=== PATIENT | female | born 1990 | race Caucasian/White ===

== ENCOUNTER 2017-02-27 00:13 | Inpatient (IN) | payer MEDICAID ==
[2017-02-27] VITALS (9 sets, daily range): BP systolic 100–142; BP diastolic 55–82; PULSE 77–106; RESP 16–18; TEMP 97.6–98.6; O2SAT 98–100
[~2017-02-27] VITALS: Ht 175.3 cm; Wt 87.0 kg
[~2017-02-27 00:13] MED LIST: IBUP600 PO
[2017-02-27] MEDS ORDERED: levETIRAcetam 500 MG TAB PO ONE (02:00)
--- NOTE | 2017-02-27 02:05 | PD ---
HPI Chief Complaint: Pain: Acute or Chronic Time Seen by Provider: 01:55 Travel History International Travel<30 days: No Contact w/Intl Traveler<30days: No Traveled to known affect area: No History of Present Illness HPI The patient is a 26 year old female who presents to the [facility] emergency department with a history of reportedly feeling unwell since July 2016 when she began to have recurrent staph skin infections. She reports that she's been on multiple rounds of antibiotic with waxing and waning improvement in her symptoms. She is followed by Dr. Vee for her care. She reports that she last completed a course of antibiotics 3 weeks ago. They held off on any further antibiotic at that point to see if her symptoms would improve on its own. She reports that they have not. She reports that she had a fever with a MAXIMUM TEMPERATURE of 102.1 last night. She also reports that over the last few days she's had pain in the left lateral hip with movement. She reports that the hip pain is near the site of a prior staph infection that is now scarred over. She denies having any known swelling to that area or erythema. She reports that she's had nausea for months without vomiting. The patient reports that she does have a history of IV drug use. She recently reports that she relapsed 2 weeks ago. She reports that she is using Dilaudid. She last used this yesterday morning. She reports that a week ago she did have an episode of chest tightness and shortness of breath that lasted for approximately a minute. She reports that she has not had any chest pain since then. She reports that she has had lower extremity edema which has been new recently. Otherwise on review of systems, she denies any recent cough, neck pain, abdominal pain,urinary symptoms, or neurologic symptoms. [facility] Past Medical History Narrative Medical The patient's past medical history is significant for IV drug use, history of hepatitis C diagnosed last year, history of polycystic ovarian syndrome. Diminished Hearing: No Hepatitis: Yes (HEP C ) Medical other: Yes (POLYCYSTIC OVARY SYNDROME ) ?: Not LMP: 01/28/17 Past Surgical History Narrative Surgical The patient's past surgical history is significant for a cystectomy, 1. Other Surgery: Yes (CYST REMOVED OFF OF OVARY ) Social History Alcohol Use: No Tobacco Use: Yes (1/2 PPD ) Substance Use: Yes (OPIATES ) Allergies-Medications (Allergen,Severity, Reaction): Coded Allergies: Ultram (Verified Allergy, Severe, Seizures, 01/25/16) Latex (Verified Allergy, Unknown, Burning , 01/24/16) blistering Reported Meds & Prescriptions Reported Meds & Active Scripts Active Motrin 600 Mg Tab (Ibuprofen) 600 Mg Tab 600 Mg PO Q6H PRN Review of Systems Except as stated in HPI: all other systems reviewed are Neg General / Constitutional: No: Fever Eyes: No: Visual changes HENT: No: Headaches Cardiovascular: Positive: Chest Pain or Discomfort Respiratory: Positive: Shortness of Breath Gastrointestinal: No: Abdominal Pain Genitourinary: No: Dysuria Musculoskeletal: No: Pain Skin: No Rash Neurologic: Positive: Weakness (generalized weakness), No: Focal Abnormalities , Change in Mentation, Slurred Speech, Sensory Disturbance Psychiatric: No: Depression Endocrine: No: Polydipsia Hematologic/Lymphatic: No: Easy Bruising Physical Exam Narrative General: The patient is a well-developed well-nourished female in no acute distress. Head and Neck exam: Head is normocephalic atraumatic. Eyes: EOMI, pupils are equal round and reactive to light. Nose: Midline septum with pink mucous membranes Mouth: Dentition unremarkable. Moist mucus membranes. Posterior oropharynx is not erythematous. No tonsillar hypertrophy. Uvula midline. Airway patent. Neck: No palpable lymphadenopathy. No nuchal rigidity. No thyromegaly. Cardiovascular: Sinus tachycardia in the low 100 without murmurs, gallops, or rubs. No pulse deficit to the extremities and simultaneous auscultation and palpation of her radial artery. Lungs: Clear to auscultation bilaterally. No wheezes, rhonchi, or rales. Abdomen: Soft, without tenderness to palpation in all 4 quadrants of the abdomen. No guarding, rebound, or rigidity. Normal bowel sounds are audible. No tenderness on palpation of McBurney's point. Negative [place] sign. Extremities: No clubbing or cyanosis. The patient has trace pedal edema bilateral lower extremities. 2+ pulses in all 4 extremities. The patient reports having left- sided calf pain on palpation. Negative Homans sign. No palpable cords. The area of interest is the left hip. The patient's left hip on examination has full range of motion with internal and external rotation without any significant pain, however the the patient does have on palpation tenderness along the lateral aspect of the hip. There is no erythema or edema. There is no palpable abnormality. No crepitus. Soft compartments are noted. Back: No spinous process tenderness to palpation. No costovertebral angle tenderness to palpation. Neurologic Exam: Grossly nonfocal. Skin Exam: The patient has multiple areas of healing scars and erythematous papules noted on her skin. The patient has track bertrand noted. Data Data Last Documented VS Vital Signs Date Time Temp Pulse Resp B/P Pulse Ox O2 Delivery O2 Flow Rate FiO2 02/27/17 02:30 18 98 Room Air 02/27/17 00:16 97.7 106 142/82 Orders Levetiracetam (Keppra) (02/27/17 02:00) Electrocardiogram (02/27/17 ) Electrocardiogram (02/27/17 ) Electrocardiogram (02/27/17 02:13) Complete Blood Count With Diff (02/27/17 02:13) Comprehensive Metabolic Panel (02/27/17 02:13) Creatine Kinase (Cpk) (02/27/17 02:13) Ckmb (Isoenzyme) Profile (02/27/17 02:13) Troponin I (02/27/17 02:13) B-Type Natriuretic Peptide (02/27/17 02:13) Prothrombin Time / Inr (Pt) (02/27/17 02:13) Act Partial Throm Time (Ptt) (02/27/17 02:13) Blood Culture (02/27/17 02:13) C-Reactive Protein (Crp) (02/27/17 02:13) Urinalysis - C+S If Indicated (02/27/17 02:13) W[place]gren Sedimentation Rate (02/27/17 02:13) Magnesium (Mg) (02/27/17 02:13) Chest, Single Ap (02/27/17 02:13) Iv Access Insert/Monitor (02/27/17 02:13) Ecg Monitoring (02/27/17 02:13) Oximetry (02/27/17 02:13) Ed Urine Pregnancytest Poc (02/27/17 02:13) Drug Screen, Random Urine (02/27/17 02:13) Alcohol (Ethanol) (02/27/17 02:13) Lactic Acid Sepsis Protocol (02/27/17 02:13) Us Leg Venous Doppler (02/27/17 02:13) Ct Hip W Iv Contrast (02/27/17 ) Piperacil-Tazo 3.375 Gm Premix (Zosyn 3. (02/27/17 03:15) Vancomycin Inj (Vancomycin Inj) (02/27/17 03:15) Sodium Chlor 0.9% 1000 Ml Inj (Ns 1000 M (02/27/17 03:15) Iohexol 350 Inj (Omnipaque 350 Inj) (02/27/17 04:06) Admit Order (Ed Use Only) (02/27/17 04:48) Labs Laboratory Tests Test 02/27/17 02/27/17 02:20 02:55 Urine Color YELLOW Urine Turbidity HAZY Urine pH 5.5 Urine Specific [place] 1.032 Urine Protein TRACE mg/dL Urine Glucose (UA) NEG mg/dL Urine Ketones NEG mg/dL Urine Occult Blood MOD Urine Nitrite NEG Urine Bilirubin NEG Urine Urobilinogen 2.0 MG/DL Urine Leukocyte Esterase TRACE Urine RBC 34 /hpf Urine WBC 6 /hpf Urine Squamous Epithelial 3 /hpf Cells Urine Transitional Epithelial <1 /hpf Cells Urine Renal Epithelial Cells <1 /hpf Urine Calcium Oxalate Crystals MOD /hpf Urine Bacteria RARE /hpf Urine Hyaline Casts 4 /lpf Urine Mucus MOD /lpf Microscopic Urinalysis Comment CULT NOT INDICATED Urine Opiates Screen POS Urine Barbiturates Screen NEG Urine Amphetamines Screen POS Urine Benzodiazepines Screen NEG Urine Cocaine Screen NEG Urine Cannabinoids Screen POS White Blood Count 5.0 TH/MM3 Red Blood Count 4.15 MIL/MM3 Hemoglobin 10.6 GM/DL Hematocrit 31.7 % Mean Corpuscular Volume 76.5 FL Mean Corpuscular Hemoglobin 25.6 PG Mean Corpuscular Hemoglobin 33.4 % Concent Red Cell Distribution Width 17.1 % Platelet Count 242 TH/MM3 Mean Platelet Volume 8.4 FL Neutrophils (%) (Auto) 46.1 % Lymphocytes (%) (Auto) 41.0 % Monocytes (%) (Auto) 10.2 % Eosinophils (%) (Auto) 2.3 % Basophils (%) (Auto) 0.4 % Neutrophils # (Auto) 2.3 TH/MM3 Lymphocytes # (Auto) 2.1 TH/MM3 Monocytes # (Auto) 0.5 TH/MM3 Eosinophils # (Auto) 0.1 TH/MM3 Basophils # (Auto) 0.0 TH/MM3 CBC Comment DIFF FINAL Differential Comment Erythrocyte Sedimentation Rate 32 mm/hr Prothrombin Time 10.5 SEC Prothromb Time International 1.0 RATIO Ratio Activated Partial 27.8 SEC Thromboplast Time Sodium Level 140 MEQ/L Potassium Level 3.9 MEQ/L Chloride Level 106 MEQ/L Carbon Dioxide Level 27.9 MEQ/L Anion Gap 6 MEQ/L Blood Urea Nitrogen 10 MG/DL Creatinine 0.60 MG/DL Estimat Glomerular Filtration 119 ML/MIN Rate Random Glucose 89 MG/DL Lactic Acid Level 1.1 mmol/L Calcium Level 8.2 MG/DL Magnesium Level 1.8 MG/DL Total Bilirubin 0.2 MG/DL Aspartate Amino Transf 45 U/L (AST/SGOT) Alanine Aminotransferase 50 U/L (ALT/SGPT) Alkaline Phosphatase 62 U/L Total Creatine Kinase 25 U/L Troponin I LESS THAN 0.02 NG/ML C-Reactive Protein 2.02 MG/DL B-Type Natriuretic Peptide 11 PG/ML Total Protein 7.0 GM/DL Albumin 2.6 GM/DL Ethyl Alcohol Level LESS THAN 3 MG/DL MDM Medical Decision Making Medical Screen Exam Complete: Yes Emergency Medical Condition: Yes Medical Record Reviewed: Yes Interpretation(s) Last Impressions Lower Extremity Ultrasound 02/27/17212 Signed Impressions: Service Date/Time: Monday, February 27, 2017 04:59 - CONCLUSION: No evidence of DVT. Molina Solis MD Chest X-Ray 02/27/17212 Signed Impressions: Service Date/Time: Monday, February 27, 2017 02:32 - CONCLUSION: Normal examination for a patient of this age. Molina Solis MD Lower Extremity CT 02/27/17 0000 Signed Impressions: Service Date/Time: Monday, February 27, 2017 03:55 - CONCLUSION: Unremarkable summation. Molina Solis MD Differential Diagnosis Sepsis related to bacteremia, versus endocarditis, versus septic joint, versus DVT Narrative Course During the course of the patients emergency department visit, the patients history, examination, and differential diagnosis were reviewed with the patient. The patient had IV access obtained and blood work sent for analysis. The patient was placed on a paper sample clerk with oximetry and blood pressure monitoring. A lactic acid was sent for analysis. Blood cultures 2 were sent. The patient had an ECG done on arrival that shows a sinus tachycardia rate of 107, no acute ST segment elevation or depression is noted. The patient was initially provided vancomycin 1 g IV, Zosyn 3.375 g IV, normal saline 1 L IV fluid bolus. The patients laboratory studies were reviewed and remarkable for a white count of 5, hemoglobin 10.6, platelets 242 with 10.2 monocytes, a sedimentation rate is elevated at 32, CMP is remarkable for a calcium of 8.2, AST 45, CPK 25, troponin I less than 0.02, C-reactive protein 2.02, BNP is 11, albumin 2.6, lactic acid 1.1, PT PTT within normal limits. Urine drug screen is positive for opiates, amphetamines, cannabinoids. Alcohol level less than 3, urinalysis shows moderate occult blood trace leukocyte Estrace 34 rbc's 6 wbc's, moderate calcium oxalate crystals, rare bacteria. Radiology studies were reviewed and remarkable for a chest x-ray that shows no acute abnormality. A CT scan of the left hip shows no acute abnormality. Ultrasound of the left lower extremity reveals no evidence of DVT. The patients results were discussed with the patient, including the plan of care. I explained that further testing and/ or monitoring is indicated based on the patients history, examination, and/ or laboratory findings. Therefore, I recommended admission for additional evaluation. The patient expressed understanding and was agreeable with this plan. The patient was admitted to the hospital in guarded condition and sent to a bed under the care of the [facility]. Sepsis Criteria SIRS Criteria (2 or more): Heart rate over 90 Physician Communication Physician Communication The patient's case was discussed with Dr. Solis who did agree to admit the patient for further evaluation and treatment at this time. Diagnosis Primary Impression: Chest pain Qualified Code: R07.9 - Chest pain, unspecified type Additional Impressions: IV drug user Fever and chills Admitting Information Admitting Physician Requests: it Manuela Gamino MD Feb 27, 2017 02:05
--- NOTE | 2017-02-27 02:53 | RADRPT ---
EXAM DATE/TIME: 02/27/2017 02:32 [facility] COMPARISON: No previous studies available for comparison. INDICATIONS : Cough. MEDICAL HISTORY : None. SURGICAL HISTORY : None. ENCOUNTER: Initial ACUITY: 1 day PAIN SCORE: 0/10 LOCATION: Bilateral chest FINDINGS: A single view of the chest demonstrates the lungs to be symmetrically aerated without evidence of mas s, infiltrate or effusion. The cardiomediastinal contours are unremarkable. Osseous structures are intact. CONCLUSION: Normal examination for a patient of this age. Molina Solis MD on February 27, 2017 at 2:51 Board Certified Radiologist. This report was verified electronically.
[2017-02-27 03:12] LABS: AUTOMATED NEUTROPHIL # 2.3 TH/MM3 (1.8-7.7); BASOPHIL % 0.4 % (0.0-2.0); EOSINOPHIL # 0.1 TH/MM3 (0-0.4); EOSINOPHIL % 2.3 % (0.0-4.0); HEMATOCRIT 31.7 % (35.0-46.0); HEMO FLAGS DIFF FINAL; LYMPHOCYTE # 2.1 TH/MM3 (1.0-4.8); MEAN CELL VOLUME 76.5 FL (80.0-100.0); MEAN CORPUSCULAR HEMOGLOBIN 25.6 PG (27.0-34.0); MEAN CORPUSCULAR HGB CONC 33.4 % (32.0-36.0); MONO % 10.2 % (0.0-8.0); NEUT % 46.1 % (16.0-70.0); PLATELET COUNT 242 TH/MM3 (150-450); RED BLOOD COUNT 4.15 MIL/MM3 (4.00-5.30); RED CELL DISTRIBUTION WIDTH 17.1 % (11.6-17.2)
[2017-02-27 03:13] LABS: BACTERIA, URINE RARE /hpf; BLOOD, URINE MOD (NEG); CALCIUM OXALATE CRYSTALS,URINE MOD /hpf; COMMENT (UR) CULT NOT INDICATED; CULTURE IF INDICATED CULT NOT INDICATED; GLUCOSE,URINE NEG (NEG); HYALINE CAST, URINE 4 /lpf (RARE); KETONE, URINE NEG (NEG); MUCUS URINE MOD /lpf (OCC); NITRITE,URINE NEG (NEG); PH, URINE 5.5 (5.0-8.5); RENAL EPITHELIAL CELLS <1 /hpf; SQUAMOUS EPITHELIAL CELL URINE 3 /hpf (0-5); TRANSITIONAL EPI CELLS, URINE <1 /hpf; URINE COLOR YELLOW (YELLW/STRAW)
[2017-02-27 03:15] LABS: AMPHETAMINE, URINE POS (NEG); BARBITURATES, URINE NEG (NEG); COCAINE, URINE NEG (NEG)
[2017-02-27] MEDS ORDERED: PIPERACIL-TAZO 3.375 GM PREMIX 50 ML IV ONE (03:15)
[2017-02-27] MEDS ORDERED: SODIUM CHLOR 0.9% 1000 ML INJ 1,000 ML IV ONE (03:15)
[2017-02-27] MEDS ORDERED: VANCOMYCIN INJ 1,000 MG in SODIUM CHLOR 0.9% 250 ML INJ 250 ML IV ONE (03:15)
[2017-02-27 03:26] LABS: APTT (PATIENT) 27.8 SEC (24.3-30.1); PROTHROMBIN TIME - PATIENT 10.5 SEC (9.8-11.6)
[2017-02-27 03:32] LABS: ALT (GPT) 50 U/L (10-53); ANION GAP 6 MEQ/L (5-15); AST (GOT) 45 U/L (15-37); BICARBONATE 27.9 MEQ/L (21.0-32.0); BLOOD UREA NITROGEN 10 MG/DL (7-18); CHLORIDE 106 MEQ/L (98-107); GLOMERULAR FILTRATION RATE 119 ML/MIN (>89); MAGNESIUM 1.8 MG/DL (1.5-2.5); POTASSIUM 3.9 MEQ/L (3.5-5.1); SODIUM (NA) 140 MEQ/L (136-145)
[2017-02-27 03:34] LABS: ALKALINE PHOSPHATASE 62 U/L (45-117); TOTAL BILIRUBIN ADULT 0.2 MG/DL (0.2-1.0)
[2017-02-27 03:43] LABS: CREATINE KINASE 25 U/L (26-192)
[2017-02-27] MEDS ORDERED: IOHEXOL 350 MG/ML 10 ML VIAL (for RAD DIAG) IV ONE (04:06)
--- NOTE | 2017-02-27 04:18 | RADRPT ---
EXAM DATE/TIME: 02/27/2017 03:55 [facility] COMPARISON: No previous studies available for comparison. INDICATIONS : Left hip pain. Evaluate for abscess. IV CONTRAST: 96 cc Omnipaque 350 (iohexol) IV RADIATION DOSE: 15.49 CTDIvol (mGy) MEDICAL HISTORY : Hepatitis C. Substance abuse. SURGICAL HISTORY : None. ENCOUNTER: Initial ACUITY: 1 day PAIN SCALE: 8/10 LOCATION: Left hip. TECHNIQUE: Volumetric scanning of the hip was performed. Using automated exposure control and adjustment of the mA and/or kV according to patient size, radiation dose was kept as low as reasonably achievable to o btain optimal diagnostic quality images. DICOM format image data is available electronically for rev iew and comparison. FINDINGS: BONES: No evidence of fracture. Alignment is within normal limits. JOINTS: No evidence of joint narrowing or effusion. SOFT TISSUES: Muscles, tendons and neurovascular structures are grossly unremarkable. No evidence of mass, organize d fluid collection, or foreign body. CONCLUSION: Unremarkable summation. Molina Solis MD on February 27, 2017 at 4:15 Board Certified Radiologist. This report was verified electronically.
--- NOTE | 2017-02-27 05:28 | RADRPT ---
EXAM DATE/TIME: 02/27/2017 04:59 [facility] COMPARISON: No previous studies available for comparison. INDICATIONS : Left leg pain. MEDICAL HISTORY : Left hip/leg pain. Substance use. Hepatitis C. Polycystic ovarian syndrome. SURGICAL HISTORY : Ovarian cyst removal. ENCOUNTER: Initial ACUITY: 1 week PAIN SCORE: 6/10 LOCATION: Left leg. TECHNIQUE: Venous ultrasound of the leg was performed from the inguinal ligament to the proximal calf. Real-debra e, color Doppler and spectral tracing, compression and augmentation techniques were used. FINDINGS: There is normal compressibility of the deep venous system from the inguinal region to the proximal ca lf. No echogenic clot is seen in the lumen of the common femoral, femoral, popliteal, and posterior tibial veins. There is a normal response of the venous system to proximal and distal augmentation an d respiration. CONCLUSION: No evidence of DVT. Molina Solis MD on February 27, 2017 at 5:26 Board Certified Radiologist. This report was verified electronically.
[2017-02-27] MEDS ORDERED: NALOXONE HCL 0.4 MG/ML AMP IV PRN (05:30)
[2017-02-27] MEDS ORDERED: Vancomycin Consult Pharmacy 1 EA OTHER SCH (05:30)
[2017-02-27] MEDS ORDERED: SODIUM CHLORIDE 0.9% FLUSH 10 ML FLUSH IV FLUSH PRN (05:30)
[2017-02-27] MEDS ORDERED: ONDANSETRON HCL 4 MG/2 ML VIAL IV PUSH PRN (06:00)
--- NOTE | 2017-02-27 08:46 | EKG ---
Date Performed: 02/27/2017 Time Performed: 02:14:16 PTAGE: 26 years EKG: SINUS TACHYCARDIA ABNORMAL RHYTHM ECG NO PREVIOUS TRACING DOCTOR: Richard Garcia Interpretating Date/Time 02/27/2017 08:44:00
[2017-02-27] MEDS: SODIUM CHLORIDE 0.9% FLUSH 10 ML FLUSH IV FLUSH SCH ×2 (09:00→20:45)
[2017-02-27] MEDS ORDERED: cloNIDine HCL 0.1 MG TAB PO PRN (09:30)
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
[2017-02-27] MEDS: BUPRENORPHINE HCL 8 MG SUBLINGUAL TAB SL SCH ×2 (10:50→20:45)
[2017-02-27] MEDS: IBUPROFEN 600 MG TAB PO SCH ×2 (10:51→18:09)
[2017-02-27] MEDS: PIPERACIL-TAZO 4.5 GM PREMIX 100 ML IV SCH ×3 (10:51→20:45)
[2017-02-27] MEDS: VANCOMYCIN INJ 1,750 MG in SODIUM CHLORID 0.9% 500 ML INJ 500 ML IV SCH ×2 (11:21→23:26)
[2017-02-27 15:28] LABS: TRANSFERRIN IRON PROFILE 232 MG/DL (200-360)
[2017-02-27 15:31] LABS: FERRITIN 23 NG/ML (8-252)
[2017-02-27] MEDS: NICOTINE 14 MG/24 HR PATCH T-DERMAL SCH (16:18)
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
--- NOTE | 2017-02-27 18:58 | PD.ID.CON ---
History of Present Illness Service ID Consult Requested By Dr Rutledge Reason for Consult IVDU, fever Primary Care Physician No Primary Care Physician Diagnoses: History of Present Illness 26 yo female with IVDU, shootrs crushed dilaudid pills developped fever, worsning L hip pain with weigh bearing x 1 -2 weeks She also was battling with skin infx and was on multiple abx since september She recalls a large draining paionrul red lesion next to her L hip area about a month ago she is febrile with temps into 102 CT of hip was unremarkable Review of Systems Constitutional: COMPLAINS OF: Fever, Chills Musculoskeletal: COMPLAINS OF: Joint pain (L hip) Integumentary: COMPLAINS OF: Rash Except as stated in HPI: all other systems reviewed are Neg Past Family Social History Allergies: Coded Allergies: Ultram (Verified Allergy, Severe, Seizures, 01/25/16) Latex (Verified Allergy, Unknown, Burning , 01/24/16) blistering Past Medical History Severe anxiety bordering on agorophobia PTSD Hepatitis C obesity Past Surgical History one term section Active Ordered Medications Medications where reviewed in EMR Antibiotics Include: zosyn vancomycin Family History reviewed, non contrib Social History + tob 1/2 ppd + IVDU no ETOH Physical Exam Vital Signs Vital Signs Date Time Temp Pulse Resp B/P Pulse Ox O2 Delivery O2 Flow Rate FiO2 02/27/17 16:01 97.9 91 18 141/73 99 02/27/17 12:30 77 02/27/17 12:20 98.6 79 18 116/72 100 02/27/17 10:02 83 16 100/56 99 02/27/17 07:00 104 16 112/64 98 02/27/17 02:30 18 98 Room Air 02/27/17 00:16 97.7 106 16 142/82 100 Physical Exam CONSTITUTIONAL/GENERAL: This is an adequately nourished patient, in no apparent distress. TUBES/LINES/DRAINS: SKIN: No jaundice, rashes, Multiple skin lesions in different phases of healing. No active purulent lesions seen. Skin temperature appropriate. Not diaphoretic. HEAD: Atraumatic. Normocephalic. EYES: Pupils equal and round and reactive. Extraocular motions intact. No scleral icterus. No injection or drainage. Fundi not examined. ENT: Hearing grossly normal. Oral mucosae without visible erythema, exudates, masses, or lesions. NECK: Trachea midline. Supple, nontender. No palpable thyroid enlargement or nodularity. CARDIOVASCULAR: Regular rate and rhythm without murmurs, gallops, or rubs. No JVD. Peripheral pulses symmetric. RESPIRATORY/CHEST: Symmetric, unlabored respirations. Clear to auscultation. Breath sounds equal bilaterally. No wheezes, rales, or rhonchi. GASTROINTESTINAL: Abdomen soft, non-tender, nondistended. No hepato-splenomegaly , or palpable masses. No guarding. Bowel sounds present. GENITOURINARY: Without palpable bladder distension. MUSCULOSKELETAL: Extremities without clubbing, cyanosis, or edema. + tenderness over L hip joint, no effusion noted. + Mild pain with active and passive ROM No calf tenderness. No mottling or clubbing. LYMPHATICS: No palpable cervical or supraclavicular adenopathy. NEUROLOGICAL: Awake and alert. Motor and sensory grossly within normal limits. Follows commands. Clear speech. Moves all extremities. PSYCHIATRIC: No obvious anxiety/depression. no apparent hallucinations or other psychotic thought process. Laboratory Laboratory Tests Test 02/27/17 02/27/17 02:20 02:55 Urine Color YELLOW Urine Turbidity HAZY Urine pH 5.5 Urine Specific [place] 1.032 Urine Protein TRACE Urine Glucose (UA) NEG Urine Ketones NEG Urine Occult Blood MOD Urine Nitrite NEG Urine Bilirubin NEG Urine Urobilinogen 2.0 Urine Leukocyte Esterase TRACE Urine RBC 34 Urine WBC 6 Urine Squamous Epithelial 3 Cells Urine Transitional Epithelial <1 Cells Urine Renal Epithelial Cells <1 Urine Calcium Oxalate Crystals MOD Urine Bacteria RARE Urine Hyaline Casts 4 Urine Mucus MOD Microscopic Urinalysis Comment CULT NOT INDICATED Urine Opiates Screen POS Urine Barbiturates Screen NEG Urine Amphetamines Screen POS Urine Benzodiazepines Screen NEG Urine Cocaine Screen NEG Urine Cannabinoids Screen POS White Blood Count 5.0 Red Blood Count 4.15 Hemoglobin 10.6 Hematocrit 31.7 Mean Corpuscular Volume 76.5 Mean Corpuscular Hemoglobin 25.6 Mean Corpuscular Hemoglobin 33.4 Concent Red Cell Distribution Width 17.1 Platelet Count 242 Mean Platelet Volume 8.4 Neutrophils (%) (Auto) 46.1 Lymphocytes (%) (Auto) 41.0 Monocytes (%) (Auto) 10.2 Eosinophils (%) (Auto) 2.3 Basophils (%) (Auto) 0.4 Neutrophils # (Auto) 2.3 Lymphocytes # (Auto) 2.1 Monocytes # (Auto) 0.5 Eosinophils # (Auto) 0.1 Basophils # (Auto) 0.0 CBC Comment DIFF FINAL Differential Comment Erythrocyte Sedimentation Rate 32 Prothrombin Time 10.5 Prothromb Time International 1.0 Ratio Activated Partial 27.8 Thromboplast Time Sodium Level 140 Potassium Level 3.9 Chloride Level 106 Carbon Dioxide Level 27.9 Anion Gap 6 Blood Urea Nitrogen 10 Creatinine 0.60 Estimat Glomerular Filtration 119 Rate Random Glucose 89 Lactic Acid Level 1.1 Calcium Level 8.2 Magnesium Level 1.8 Iron Level 22 Total Iron Binding Capacity 325 Percent Iron Saturation 6.8 Ferritin 23 Total Bilirubin 0.2 Aspartate Amino Transf 45 (AST/SGOT) Alanine Aminotransferase 50 (ALT/SGPT) Alkaline Phosphatase 62 Total Creatine Kinase 25 Troponin I LESS THAN 0.02 C-Reactive Protein 2.02 B-Type Natriuretic Peptide 11 Total Protein 7.0 Albumin 2.6 Ethyl Alcohol Level LESS THAN 3 Date/Time Procedure Status Source Growth 02/27/17 02:55 Aerobic Blood Culture Received Blood Peripheral Pending 02/27/17 02:55 Anaerobic Blood Culture Received Blood Peripheral Pending Result Diagram: 02/27/17 0255 02/27/17 0255 Imaging Last Impressions Lower Extremity Ultrasound 02/27/17212 Signed Impressions: Service Date/Time: Monday, February 27, 2017 04:59 - CONCLUSION: No evidence of DVT. Molina Solis MD Chest X-Ray 02/27/17212 Signed Impressions: Service Date/Time: Monday, February 27, 2017 02:32 - CONCLUSION: Normal examination for a patient of this age. Molina Solis MD Lower Extremity CT 02/27/17 0000 Signed Impressions: Service Date/Time: Monday, February 27, 2017 03:55 - CONCLUSION: Unremarkable summation. Molina Solis MD Assessment and Plan Assessment and Plan Fever aw IVDU L hip pain - b/s urine test negative as of 02/27 fu blood clx L hip MRI Giuliana Vicente MD Feb 27, 2017 18:58
[2017-02-27] MEDS ORDERED: REMOVE OLD NICODERM (NICOTINE) PATCH T-DERMAL SCH (21:00)
[2017-02-28] VITALS: BP 111/55; PULSE 95; RESP 20; TEMP 97.1; O2SAT 98
[2017-02-28] MEDS: PIPERACIL-TAZO 4.5 GM PREMIX 100 ML IV SCH ×2 (03:29→09:39)
[2017-02-28] MEDS: IBUPROFEN 600 MG TAB PO SCH ×2 (03:29→09:25)
[2017-02-28 04:00] VITALS: BP 110/64; PULSE 81; RESP 18; TEMP 97.8; O2SAT 98
[2017-02-28 07:05] LABS: AUTOMATED NEUTROPHIL # 1.7 TH/MM3 (1.8-7.7); BASOPHIL % 0.7 % (0.0-2.0); EOSINOPHIL # 0.1 TH/MM3 (0-0.4); EOSINOPHIL % 2.9 % (0.0-4.0); HEMATOCRIT 34.2 % (35.0-46.0); HEMO FLAGS DIFF FINAL; LYMPH % 46.1 % (9.0-44.0); LYMPHOCYTE # 1.8 TH/MM3 (1.0-4.8); MEAN CELL VOLUME 76.1 FL (80.0-100.0); MEAN CORPUSCULAR HEMOGLOBIN 25.6 PG (27.0-34.0); MEAN CORPUSCULAR HGB CONC 33.6 % (32.0-36.0); NEUT % 43.3 % (16.0-70.0); PLATELET COUNT 182 TH/MM3 (150-450); RED BLOOD COUNT 4.49 MIL/MM3 (4.00-5.30); RED CELL DISTRIBUTION WIDTH 17.8 % (11.6-17.2); WHITE BLOOD COUNT 3.9 TH/MM3 (4.0-11.0)
[2017-02-28 07:10] LABS: BICARBONATE 25.5 MEQ/L (21.0-32.0); POTASSIUM 4.7 MEQ/L (3.5-5.1)
[2017-02-28 08:00] VITALS: BP 117/66; PULSE 84; PULSE 98; RESP 20; TEMP 98.4; O2SAT 98
--- NOTE | 2017-02-28 08:43 | HHI.PR ---
Subjective Remarks Feeling quite poorly with muscle aches, joint aches new no productive cough nausea, cramping, skin crawling--c/w withdrawal from street opioids despite bid subutex feels the skin eruptions are drying up with antibiotics and no new ones. Objective - Vital Signs Date Time Temp Pulse Resp B/P Pulse Ox O2 Delivery O2 Flow Rate FiO2 02/28/17 04:00 97.8 81 18 110/64 98 02/28/17 00:00 Room Air 02/28/17 00:00 97.1 95 20 111/55 98 02/27/17 20:01 97.6 89 16 111/55 99 02/27/17 20:00 Room Air 02/27/17 20:00 82 02/27/17 16:01 97.9 91 18 141/73 99 02/27/17 12:30 77 02/27/17 12:20 98.6 79 18 116/72 100 02/27/17 10:02 83 16 100/56 99 I/O 02/27/17 02/27/17 02/27/17 02/28/17 02/28/17 02/28/17 06:59 14:59 22:59 06:59 14:59 22:59 Intake Total 460 ml 570 ml Output Total 300 ml Balance 460 ml 270 ml Intake Oral 360 ml 220 ml IV Total 100 ml 350 ml Output Urine Total 300 ml # Voids 3 # Bowel Movements 1 0 Result Diagram: 02/28/17 0550 02/28/17 0550 Objective Remarks PERRLA with no constriction or dilation sweating AVSS lesions all appear dry no obvious phleblitis many hard knots on legs A/P Diagnosis: (1) IV drug user (2) Fever and chills (3) Chest pain (4) Hepatitis C Assessment and Plan Concerned that she has an indolent infection that needs to be identified. WBCs low. No fevers but chills. I think there is an infection in the hip, not seen on plain films and needs an MRI. Once infection identified and under control, we will address detox and residential treatment at [facility] and out patient therapy. DCF will likely have input. Hoping to address her PTSD and severe anxiety while here. increase buprenorphine for now. Problem Qualifiers (1) Chest pain: Qualified Code: R07.9 - Chest pain, unspecified type Lupe Vee MD Feb 28, 2017 08:43
[2017-02-28] MEDS: NICOTINE 14 MG/24 HR PATCH T-DERMAL SCH (09:00)
[2017-02-28] MEDS ORDERED: BUPRENORPHINE HCL 8 MG SUBLINGUAL TAB SL SCH (09:00)
[2017-02-28] MEDS ORDERED: PARoxetine HCL 20 MG TAB PO SCH (09:00)
[2017-02-28] MEDS: SODIUM CHLORIDE 0.9% FLUSH 10 ML FLUSH IV FLUSH SCH (09:39)
[2017-02-28] MEDS: VANCOMYCIN INJ 1,750 MG in SODIUM CHLORID 0.9% 500 ML INJ 500 ML IV SCH (11:07)
[2017-02-28] MEDS ORDERED: clonazePAM 0.5 MG TAB PO SCH (13:00)
--- NOTE | 2017-02-28 13:17 | HHI.DS ---
Discharge Summary Admission Date Feb 27, 2017 at 04:50 Discharge Date: Feb 28, 2017 Admitting Diagnosis chest pain, h/o ivdu, ro endocarditis, sepsis (1) Chest pain ICD Code: R07.9 Diagnosis: Principal (2) IV drug user ICD Code: F19.90 Diagnosis: Principal (3) Hepatitis C ICD Code: B19.20 Diagnosis: Secondary (4) Opioid abuse ICD Code: F11.10 Diagnosis: Principal Procedures none Brief History - From Admission Written by Sosa Muniz PA-C acting as scribe for Dr. Galeana on 02/27/17 at 09:01. This note was transcribed by scribe Sosa Muniz PA-C. I, Dr. Joselin Galeana personally performed the history, physical exam, and medical decision making; and confirmed the accuracy of the information in the transcribed note. Authenticated by Dr. Joselin Galeana on 02/27/17 at 09:01. This is a 26-year-old female with a past medical history of IV drug use, hepatitis C diagnosed one year ago, polycystic ovarian syndrome and recurrent staph infections who presented to [facility] ED from urgent care as well as Dr. Vee with complaints of left lateral hip pain. Patient reports fever 102.1 last night but was afebrile and her presentation to the ED. She denies any previous injury to the left hip. She denies any open sores, swelling or erythema over the left hip but endorses that warm to the touch. She reports feeling pain "inside the joint". She is having difficulty walking as result of the pain of the left hip is unable to lay on her left side. She states that he feels stiff and axes at that point to "lock up" on her. Patient is currently under the care of Dr. Vee has been prescribed Suboxone for her for detox. Unfortunately, patient relapsed with IV drug use approximately a week to 2 weeks ago and last used Dilaudid yesterday morning. She states she has plans to go to residential detox facility in the near future. Patient also reports severe nausea without any vomiting. She endorses fever and chills. She also endorses recurrent staph infections with multiple painful open sores. She has completed multiple rounds of antibiotic therapy. Denies any previous history of bacteremia or endocarditis. She's never been on IV antibiotics before. Additionally, patient reports a single episode of chest tightness 1 week ago that she attributes to increased stress at home with her father who is recently diagnosed with kidney failure and 2 deaths one of which was her grandmother who passed with bladder cancer. She also endorses bilateral lower extremity swelling. She denies any current chest pain or shortness of breath. She denies any abdominal pain. She denies any diarrhea, hematuria or dysuria. CBC/BMP: 02/28/17 0550 02/28/17 0550 Significant Findings Laboratory Tests Test 02/27/17 02/27/17 02/28/17 02:20 02:55 05:50 Urine Turbidity HAZY (CLEAR) Urine Occult Blood MOD (NEG) Urine Leukocyte Esterase TRACE (NEG) Urine RBC 34 /hpf (0-3) Urine WBC 6 /hpf (0-5) Urine Calcium Oxalate Crystals MOD /hpf (NONE) Urine Bacteria RARE /hpf (NONE) Urine Mucus MOD /lpf (OCC) Urine Opiates Screen POS (NEG) Urine Amphetamines Screen POS (NEG) Urine Cannabinoids Screen POS (NEG) Hemoglobin 10.6 GM/DL 11.5 GM/DL (11.6-15.3) (11.6-15.3) Hematocrit 31.7 % 34.2 % (35.0-46.0) (35.0-46.0) Mean Corpuscular Volume 76.5 FL 76.1 FL (80.0-100.0) (80.0-100.0) Mean Corpuscular Hemoglobin 25.6 PG 25.6 PG (27.0-34.0) (27.0-34.0) Monocytes (%) (Auto) 10.2 % (0.0-8.0) Erythrocyte Sedimentation Rate 32 mm/hr (0-20) Calcium Level 8.2 MG/DL 8.1 MG/DL (8.5-10.1) (8.5-10.1) Iron Level 22 MCG/DL (50-170) Percent Iron Saturation 6.8 % (20-50) Aspartate Amino Transf 45 U/L (15-37) (AST/SGOT) Total Creatine Kinase 25 U/L (26-192) Troponin I LESS THAN 0.02 NG/ML (0.02-0.05) C-Reactive Protein 2.02 MG/DL (0.00-0.30) Albumin 2.6 GM/DL (3.4-5.0) White Blood Count 3.9 TH/MM3 (4.0-11.0) Red Cell Distribution Width 17.8 % (11.6-17.2) Lymphocytes (%) (Auto) 46.1 % (9.0-44.0) Neutrophils # (Auto) 1.7 TH/MM3 (1.8-7.7) Imaging Last Impressions Lower Extremity Ultrasound 02/27/17212 Signed Impressions: Service Date/Time: Monday, February 27, 2017 04:59 - CONCLUSION: No evidence of DVT. Molina Solis MD Chest X-Ray 02/27/17212 Signed Impressions: Service Date/Time: Monday, February 27, 2017 02:32 - CONCLUSION: Normal examination for a patient of this age. Molina Solis MD Lower Extremity CT 02/27/17 0000 Signed Impressions: Service Date/Time: Monday, February 27, 2017 03:55 - CONCLUSION: Unremarkable summation. Molina Solis MD PE at Discharge GENERAL: This is a well-nourished, well-developed patient, in no apparent distress. Mildly anxious appearing. Awake and alert. SKIN: Multiple diffuse erythematous papules noted over her body. Warm and dry. CARDIOVASCULAR: Tachycardic without murmurs, gallops, or rubs. RESPIRATORY: Clear to auscultation. Breath sounds equal bilaterally. No wheezes , rales, or rhonchi. GASTROINTESTINAL: Abdomen soft, non-tender, nondistended. No hepato-splenomegaly , or palpable masses. No guarding. MUSCULOSKELETAL: Extremities without clubbing or cyanosis. Bilateral lower extremity nonpitting edema noted. Tenderness to palpation over the aspect of left hip. Full range of motion with internal and external rotation. Pain elicited with left hip flexion. No calf tenderness. NEUROLOGICAL: Awake and alert. Able to move all extremities. No focal neurologic findings appreciated. Normal speech. Pt update on day of discharge The patient is sitting that she appears in not acute distress at this time. Denies having any pain at this time however she is complaining to the nurse she still has a lot of hip pain. She was started on Suboxone by her CONFERENCE ASSISTANT Dr. Vee year. Patient denies any fevers or chills. No nausea or vomiting she was able to eat. Hospital Course 26-year-old female with a past medical history of IV drug use, hepatitis C diagnosed one year ago, polycystic ovarian syndrome and recurrent staph infections who presented to [facility] ED from urgent care as well as Dr. Jones with complaints of left lateral hip pain. Left lateral hip pain - Uncertain etiology - no evidence of septic joint - CT of the hip obtained and the ED, images reviewed personally, unremarkable with no evidence of fracture, joint narrowing or effusion, fluid collection, mass or other abnormality. - PT eval/tx - Ibuprofen 600 mg by mouth every [address] Vee - f/u on ID recommendations Tachycardic, suspect secondary to withdrawal IV drug use, last used Dilaudid yesterday morning Polysubstance abuse - EKG shows sinus tachycardia - Urine drug screen positive for opiates, amphetamines and cannabinoids - UA reveals moderate occult blood, trace leukocytes, 34 red blood cells and 6 white blood cells but not indicated for culture - Chest x-ray, personally reviewed, unremarkable examination - Dr. Vee was consulted and is already started the patient on Suboxone as well as Hydroxyzine and Clonidine for withdrawal symptoms - Discussed with patient at length abstinent/cessation of substance use - Monitor H/O Hep C, diagnosed one year ago - HIV and Hep C RNA genotyping and quantitative ordered by Dr. Vee. Will follow up on results. History of recurrent staph infections Elevated sedimentation rate and CRP - No leukocytosis, patient is afebrile - Continue on IV Zoysn. Patient started on IV vancomycin by Dr. Vee. - ID consulted by Dr. Vee - Follow up on blood culture results - follow up on MRSA screen Microcytic, hypochromic anemia - Obtain iron studies - Monitor Episode of chest tightness 1 week ago, no further recurrence - Troponin negative - Suspect anxiety/stress related - Monitor BLE edema - Left lower extremity Doppler negative for DVT] DVT prophylaxis - SCD/MELANY hose Discussed Condition With Patient, nurse. PATIENT LEFT AMA AFTER SHE WAS SEEN BY ME. BRENNA DID BRING ILLICIT DRUGS IN HER ROOM , PATIENT DECIDED TO LIVE AMA. Pt Condition on Discharge: Stable Discharge Disposition: Discharge Home (left AMA after she was seen today ) Discharge Time: > 30 minutes Joselin Galeana MD Feb 28, 2017 13:17
[2017-02-28] MEDS ORDERED: PILL SPLITTER OTHER PRN (13:30)
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
[2017-02-28] MEDS ORDERED: PHARMACY ORDERED LAB ONE (22:45)
[2017-03-01] MEDS ORDERED: PARoxetine HCL 20 MG TAB PO SCH (09:00)
== END 2017-02-28 14:35 | disposition left against medical advice (07) | DRG 603 ==
LOC: NEPC 00:13 → NEDA 04:50 → N04B 12:30
PROVIDERS: ADMIT Hospitalist; ATTEND Hospitalist
DX: L08.9 Local infection of the skin and subcutaneous tissue, unspecified (principal); F11.23 Opioid dependence with withdrawal; F32.9 Major depressive disorder, single episode, unspecified; F19.90 Other psychoactive substance use, unspecified, uncomplicated; D50.9 Iron deficiency anemia, unspecified; M25.552 Pain in left hip; R07.89 Other chest pain; B19.20 Unspecified viral hepatitis C without hepatic coma; E28.2 Polycystic ovarian syndrome; Z72.0 Tobacco use; R26.2 Difficulty in walking, not elsewhere classified; Z80.52 Family history of malignant neoplasm of bladder; F43.10 Post-traumatic stress disorder, unspecified; E66.9 Obesity, unspecified; B95.8 Unspecified staphylococcus as the cause of diseases classified elsewhere
CPT/HCPCS: 71010; 73701; 80048; 80053; 80307; 81001; 82550; 82728; 83540; 83550; 83605; 83735; 83880; 84484; 84703; 85025; 85610; 85652; 85730; 86140; 86703; 87040; 87522; 87902; 93005; 93971; 96365; 96367; J2405; J2543; J3370; J7030; J7040; J7050; Q9967